=== PATIENT | female | born 2000 | race African-American/Black ===

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

== ENCOUNTER 2022-03-23 02:14 | Inpatient (IN) ==
[2022-03-23] MEDS ORDERED: Lactated Ringers 1000 ml BAG 1,000 ML IV ONE (02:54)
[2022-03-23] MEDS ORDERED: Buffered Lidocaine 1% SYRIN 1 ml INTRADERM ONE (02:54)
[2022-03-23] MEDS ORDERED: Lactated Ringers 1000 ml BAG 1,000 ML IV SCH ×2 (03:00→08:00)
[2022-03-23] MEDS ORDERED: Penicillin G Potassium IV 5,000,000 UNITS in NS 0.9% 100 ml BAG 100 ML IVPB ONE (03:46)
[2022-03-23 03:52] LABS: ABS Monocytes 1.1 10^3/ul (0-0.8); ABS Neutrophils 6.7 10^3/ul (1.5-7.7); Eosinophil % 0.5 %; Hematocrit 35 % (35-47); Hemoglobin 11.7 g/dL (12.0-16.0); Lymphocyte % 20.2 %; Mean Corpuscular HGB Conc 33 g/dL (31-36); Mean Corpuscular Hemoglobin 30 pg (27-31); Mean Corpuscular Volume 92 fL (80-97); Mean Platelet Volume 9.1 fL (7.4-10.4); Platelet Count 160 10^3/uL (150-450); Red Blood Count 3.86 10^6 /uL (3.70-4.87); Red Cell Distribution Width 14 % (10-15); Urine Appearance Clear; Urine Bilirubin Negative (Negative); Urine Blood Negative (Negative); Urine Color Straw; Urine Glucose Negative (Negative); Urine Ketones Negative (Negative); Urine Nitrite Negative (Negative); Urine Protein Negative (Negative); Urine Specific Gravity 1.012 (1.002-1.030); Urine Urobilinogen Negative (Negative); White Blood Count 9.8 10^3/uL (3.5-10.8)
[2022-03-23 04:11] LABS: Urine Benzodiazepine Screen None Detected (None Detect); Urine Cannabinoids Screen None Detected (None Detect); Urine Opiates Screen None Detected (None Detect)
[2022-03-23 04:15] LABS: ALT 28 U/L (7-52); Albumin 3.8 g/dL (3.2-5.2); Albumin/Globulin Ratio 1.4 (1-3); Alkaline Phosphatase 97 U/L (35-149); Blood Urea Nitrogen 11 mg/dL (6-24); CO2 Carbon Dioxide 21 mmol/L (22-32); Calcium 9.1 mg/dL (8.6-10.3); Chloride 103 mmol/L (101-111); Globulin 2.8 g/dL (2-4); Glucose 79 mg/dL (70-100); Sodium 132 mmol/L (135-145); Total Protein 6.6 g/dL (6.4-8.9); Uric Acid 3.5 mg/dL (2.3-6.6); eGFR CKD-EPI 132.5 (>60)
[2022-03-23 04:17] LABS: Anion Gap 8 mmol/L (2-11)
[2022-03-23] MEDS ORDERED: Oxytocin in LR 20 UNITS/1,000 ML BAG IVPB ONE (06:35)
[2022-03-23] MEDS ORDERED: Witch Hazel PAD JAR ONE (06:57)
[2022-03-23] MEDS ORDERED: Dibucaine 1% OINT 28.35 GM TUBE ONE (06:57)
[2022-03-23] MEDS ORDERED: Witch Hazel PAD JAR TOPICAL PRN (07:29)
[2022-03-23] MEDS ORDERED: Glycerin ADULT 2.4 gm SUPP PR PRN (07:29)
[2022-03-23] MEDS ORDERED: Oxytocin in LR 20 UNITS/1,000 ML BAG IVPB SCH (08:00)
[2022-03-23] MEDS ORDERED: Penicillin G Potassium IV 3,000,000 UNITS in NS 0.9% 100 ml BAG 100 ML IVPB SCH (08:00)
[2022-03-23] MEDS: Dibucaine 1% OINT 28.35 GM TUBE PR PRN (15:15)
[2022-03-24 07:12] LABS: ABS Eosinophils 0.1 10^3/ul (0-0.6); ABS Lymphocytes 2.1 10^3/ul (1.0-4.8); ABS Neutrophils 7.1 10^3/ul (1.5-7.7); Eosinophil % 0.6 %; Hematocrit 34 % (35-47); Hemoglobin 11.8 g/dL (12.0-16.0); Lymphocyte % 20.3 %; Mean Corpuscular HGB Conc 34 g/dL (31-36); Mean Corpuscular Hemoglobin 31 pg (27-31); Mean Corpuscular Volume 92 fL (80-97); Mean Platelet Volume 8.9 fL (7.4-10.4); Platelet Count 138 10^3/uL (150-450); Red Blood Count 3.75 10^6 /uL (3.70-4.87); Red Cell Distribution Width 14 % (10-15); White Blood Count 10.2 10^3/uL (3.5-10.8)
[2022-03-25 09:36] VITALS: BP 120/58
[2022-03-25] MEDS: Dibucaine 1% OINT 28.35 GM TUBE PR PRN (13:02)
== END 2022-03-25 16:40 | disposition home or self-care (01) | DRG 560 ==
LOC: MCHOBOUT 02:14 → MCHOB 02:35
PROVIDERS: ADMIT Midwife; ATTEND Midwife